=== PATIENT | male | born 2000 | race Caucasian/White ===

== ENCOUNTER 2023-07-30 08:20 | Emergency (ER) | payer MEDICAID, SELFPAY ==
[2023-07-30 08:21] VITALS: BP 116/79; PULSE 84; RESP 16; TEMP 36.1; O2SAT 97; BMI 21.1
--- NOTE | 2023-07-30 08:44 | EDS_ITS ---
HPI HPI - GI History of Present Illness Chief Complaint: Abd Pain Narrative Narrative: 23-year-old male who denies significant past medical history presents with epigastric to upper abdominal pain that began around 530 this morning, approximately 3 hours ago. He denies any fevers or chills, no nausea or vomiting, no dysuria or hematuria, no problems with bowel movements. More of a pain whenever he sits up or stands and walks. He denies other symptoms. He does vape, but denies any alcohol or drug use. He states yesterday everything was fine, denies any trauma. [facility] Medical History Anxiety and depression Allergy/AdvReac Type Severity Reaction Status Date / Time No Known Allergies Allergy Verified 07/30/23 08:21 Social History Smoking Status: Current every day smoker tobacco type: e-cigarettes ROS ROS ED ROS Narrative Constitutional: No fever, no chills. HEENT: No sore throat. No neck pain. No loss of vision. No rhinorrhea. Cardiovascular: No chest pain. No palpitations. No pedal edema. Respiratory: No cough, no shortness of breath. Abdominal: Epigastric/upper abdominal pain no nausea. No vomiting. Genitourinary: No dysuria. No hematuria. Musculoskeletal: No myalgias. No arthralgias. Neurologic: No headaches. No dizziness. No lightheadedness. Skin: No rash. No change in color. Psychiatric: No depression. No anxiety. EXAM Physical Exam Narrative Exam Narrative: Afebrile. Vital signs noted. HEENT: Normocephalic. Atraumatic. PERRL, EOMI. Neck soft and supple. No point tenderness or step off. Cardiovascular: Regular rate and rhythm. No murmurs, rubs, or gallops appreciated. Respiratory: No tachypnea. Lungs clear to auscultation bilaterally. Gastrointestinal: Abdomen soft, nontender, positive pain with half sit up in epigastrium/upper abdominal area, with normoactive bowel sounds. No rebound or guarding. Neurological: Awake. Alert. Nonfocal, nonlateralizing. Skin: No rash. Normal color. No pallor. Musculoskeletal: No pedal edema. Full range of motion extremities. Const Vital Signs: 07/30/23 08:21 07/30/23 08:55 Temperature 96.9 F L Temperature Source Temporal Pulse Rate 84 80 Respiratory Rate 16 Blood Pressure 116/79 Blood Pressure Mean 91 Pulse Ox 97 Oxygen Delivery Method Room Air MDM MDM MDM Narrative Medical decision making narrative: In the differential diagnosis would be pancreatitis versus abdominal wall strain versus nonspecific abdominal pain. He is not really exhibiting other signs of internal abdominal problems such as nausea or vomiting, no diarrhea. But I do think he has more of an abdominal wall strain, I do feel that screening laboratory should be obtained. I do not feel he requires emergent CT imaging currently. He was bolused normal saline and administered Toradol 15 mg intravenously. Upon repeat examination at approximately 940 he is resting comfortably on the cot with his shirt over his head. I reviewed his laboratory work from today and he has normal white count of 4.5, hemoglobin normal at 15.6, normal platelet count of 334. CMP shows AST low at 12 with normal ALT of 16 and alk phos sl ightly elevated at 44 which I think is nonspecific. He has a normal lipase. At this point in time, I do feel that he has probably more of an abdominal wall strain. I do not feel he requires observation. He will take [id number] analgesics, and rest today. He requested a note to be off work today. Return instructions to the emergency department were reviewed. Disposition is discharged home in stable condition. History & Record Review Discussion w/independent historian: Patient Additional record(s) reviewed:: No prior records Lab Data Attestation: I reviewed the patient's lab results. Labs: Laboratory Results - last 24 hr 07/30/23 08:55 WBC 4.5 RBC 5.35 Hgb 15.6 Hct 46.5 MCV 86.9 MCH 29.2 MCHC 33.5 RDW Std Deviation 43.3 RDW Coeff of Nicholas 13.6 Plt Count 334 MPV 9.2 Immature Gran % (Auto) 0.000 Neut % (Auto) 60.3 Lymph % (Auto) 31.2 [place] % (Auto) 7.4 Eos % (Auto) 0.7 Baso % (Auto) 0.4 Absolute Neuts (auto) 2.7 Absolute Lymphs (auto) 1.39 Nucleated RBC % 0 Sodium 139 Potassium 3.7 Chloride 106 Carbon Dioxide 30.0 Anion Gap 3 L BUN 11 Creatinine 0.91 Estim Creat Clear Calc 111.22 Est GFR (MDRD) Af Amer 135 Est GFR (MDRD) Non-Af 111 BUN/Creatinine Ratio 12.0 Glucose 97 Calcium 8.9 Total Bilirubin 0.50 AST 12 L ALT 16 Alkaline Phosphatase 44 L Total Protein 6.1 L Albumin 3.9 Globulin 2.2 Albumin/Globulin Ratio 1.8 Lipase 18 Discharge Plan Triage Chief Complaint: Abd Pain ED Provider: Ahsan Lowery Dx/Rx/DC Orders Clinical Impression: Epigastric pain, Abdominal wall pain Instructions: ED Epigastric Pain Uncertain Cause, ED Abdominal Pain Unkn Cause Male... Stand Alone Forms: ED Work / School Excuse Primary Care Provider: Care Physician,No Primary Referrals: Rickie Kingsley MD [Med Staff - Active Staff] - 3-5 Days if not improving Care Physician,No Primary [Primary Care Provider] - Disposition Disposition: Home, Self Care
[2023-07-30] MEDS: 0.9% Normal Saline 1,000 ML 1000 ML IV (08:54)
[2023-07-30] MEDS: Ketorolac 15 MG/ML Vial IV (08:54)
[2023-07-30 08:55] VITALS: PULSE 80
[2023-07-30 09:18] LABS: ALB/GLOB Ratio 1.8 RATIO (0.9-2.4); AST(SGOT) 12 U/L (15-37); Absolute Lymphocyte Count 1.39 X10^3/uL (0.83-4.51); Absolute Neutrophil Count 2.7 X10^3/uL (2.0-7.7); Alanine Aminotransfer ALT/SGPT 16 U/L (16-61); Albumin, Serum 3.9 g/dL (3.2-5.0); Alkaline Phosphatase 44 U/L (45-117); Anion Gap 3 (5-15); BUN 11 mg/dL (7-18); Basophil# 0.02 X10^3/uL; Basophil% 0.4 % (0-1); Calcium,Total 8.9 mg/dL (8.5-10.1); Chloride 106 mmol/L (98-107); Creatinine, Serum 0.91 mg/dL (0.70-1.30); EST Glomerular Filtration Rate 111 mL/min (>60); Eosinophil# 0.03 X10^3/uL; Eosinophils% 0.7 % (0-5); Est Glom Filt Rate - Afr Amer 135 mL/min (>60); Estimated Creatinine Clearance 111.22 ml/min; Globulin 2.2 g/dL (2.2-4.2); Glucose 97 mg/dL (74-106); Hematocrit 46.5 % (40-54); Hemoglobin 15.6 g/dL (13.0-16.5); Lipase 18 U/L (13-75); Lymphocyte # 1.39 X10^3/ul (0.83-4.51); Lymphocyte % 31.2 % (19-41); Mean Corp Hgb Conc 33.5 g/dL (32-36); Mean Corpuscular Hgb 29.2 pg (27.0-32.0); Mean Corpuscular Volume 86.9 fL (80-94); Mean Platelet Vol. 9.2 fl (6.2-12.0); Monocyte# 0.33 X10^3/uL; Monocyte% 7.4 % (0-10); NRBC Flagged by Analyzer 0 % (0-5); Neutrophil # 2.68 X10^3/uL (2.7-7.7); Neutrophil % 60.3 % (47-70); Platelet Count 334 K/mm3 (150-450); Potassium 3.7 mmol/L (3.5-5.1); Protein, Total 6.1 g/dL (6.4-8.2); RBC Distribution Width CV 13.6 % (11.6-14.6); RBC Distribution Width SD 43.3 fl (35.1-43.9); Red Blood Count 5.35 M/mm3 (4.6-6.2); Sodium Level 139 mmol/L (136-145); White Blood Count 4.5 K/mm3 (4.4-11.0)
== END 2023-07-30 09:52 | disposition home or self-care (01) ==
PROVIDERS: Emergency Provider Emergency Medicine; Visit Provider Emergency Medicine
DX: R10.13 Epigastric pain (principal); F17.290 Nicotine dependence, other tobacco product, uncomplicated; R10.9 Unspecified abdominal pain
CPT/HCPCS: 80053; 83690; 85025; 96361; 96374; 99282; J7030; A4216

== ENCOUNTER 2023-09-30 15:41 | Emergency (ER) | payer MEDICAID, SELFPAY ==
[2023-09-30] VITALS (8 sets, daily range): BP systolic 99–115; BP diastolic 50–73; PULSE 56–95; RESP 13–21; TEMP 36.4; O2SAT 97–100; BMI 19.6
--- NOTE | 2023-09-30 16:17 | EKG12_ITS ---
Test Reason : Blood Pressure : / mmHG Vent. Rate : 085 BPM Atrial Rate : 085 BPM P-R Int : 162 ms QRS Dur : 088 ms QT Int : 350 ms P-R-T Axes : 095 085 078 degrees QTc Int : 416 ms Normal sinus rhythm Normal ECG Confirmed by ABHISHEK DIXON, VALDEZ ([id number]), food expeditor GRAYSON MENEZES ([id number]) on 10/10/2023 7:49:10 AM Referred By: Confirmed By:SERA WEISS MD
--- NOTE | 2023-09-30 16:18 | EDS_ITS ---
HPI History of Present Illness Chief Complaint: Alt LOC Informant: EMS Narrative Narrative: 23-year-old male presenting to the emergency department via EMS with a chief complaint of altered mental status. Reportedly the patient was at work at [employer] and was found stumbling around the parking lot confused/altered. Patient is not speaking and cannot provide any history. EMS notes no outward signs of trauma. [facility] Medical History Anxiety and depression Allergy/AdvReac Type Severity Reaction Status Date / Time No Known Allergies Allergy Verified 07/30/23 08:21 Social History Smoking Status: Current every day smoker tobacco type: e-cigarettes ROS ROS ED Review of Systems ROS Unobtainable: due to mental status EXAM Physical Exam Const Vital Signs: 09/30/23 15:42 09/30/23 15:46 09/30/23 17:27 Temperature 97.5 F L Temperature Source Temporal Pulse Rate 95 93 84 Respiratory Rate 20 H 21 H 16 Blood Pressure 115/73 115/73 99/50 L Blood Pressure Mean 87 87 66 Pulse Ox 98 100 99 Oxygen Delivery Method Room Air Room Air Room Air 09/30/23 18:25 09/30/23 20:05 Temperature Temperature Source Pulse Rate 68 75 Respiratory Rate 16 18 Blood Pressure 111/68 111/64 Blood Pressure Mean 82 79 Pulse Ox 99 Oxygen Delivery Method Room Air Positive well nourished and well developed General Appearance ED: well developed HEENT Reports normocephalic, head/scalp atraumatic and moist mucous membranes Eyes EOMs intact bilaterally Eyes Narrative: Pupils are 4 mm and minimally reactive Neck no lymphadenopathy, supple and no JVD Resp normal respiratory effort and clear to auscultation bilaterally Cardio regular rate, regular rhythm and no murmurs GI normal to inspection, nondistended, normoactive bowel sounds and non-tender Palpation: soft Back/Spine no CVA tenderness and normal ROM Extremity normal to inspection General Extremety ED: Negative for edema General Extremity: Negative for edema Neuro Neuro Narrative: Nonverbal at this time. He is moving all extremities. He attempts to grab me multiple times during examination. Patient attempted to punch me during the exam. Sensorium / Orientation: lethargic Skin no rashes or lesions noted and no wounds MDM MDM MDM Narrative Medical decision making narrative: Patient attempted to punch me during the examination. I was able to restrain the arm and call for help. Once additional staff including security arrived patient calm down and was allowed to close his eyes rest. Unfortunately this was short-lived and the patient again became aggressive with staff starting to fight nursing. He was placed in soft restraints. He was allowed to come out of restraints but once again became agitated and combative and was placed in restraints again. Patient was reassessed by this physician every hour that he was here. He has been hemodynamically stable. He is not in any distress. Basic blood work essentially unremarkable. Toxicology is positive for noise patient was in the to sleep and is calm down and is out of restraints. Called somebody to give him a ride home. Would recommend drug treatment if he wishes History & Record Review Discussion w/independent historian: EMS personnel and Patient Lab Data Attestation: I reviewed the patient's lab results. Labs: Laboratory Results - last 24 hr 09/30/23 09/30/23 16:20 18:20 WBC 6.6 RBC 4.99 Hgb 14.2 Hct 43.7 MCV 87.6 MCH 28.5 MCHC 32.5 RDW Std Deviation 43.0 RDW Coeff of Nicholas 13.3 Plt Count 341 MPV 9.5 Immature Gran % (Auto) 0.300 Neut % (Auto) 59.5 Lymph % (Auto) 33.1 [place] % (Auto) 6.2 Eos % (Auto) 0.6 Baso % (Auto) 0.3 Absolute Neuts (auto) 3.9 Absolute Lymphs (auto) 2.19 Nucleated RBC % 0 Sodium 140 Potassium 3.5 Chloride 105 Carbon Dioxide 27.0 Anion Gap 8 BUN 10 Creatinine 1.25 Estim Creat Clear Calc 86.87 Est GFR (MDRD) Af Amer 94 Est GFR (MDRD) Non-Af 77 BUN/Creatinine Ratio 8.0 L Glucose 93 Calcium 9.0 Total Bilirubin 0.40 AST 17 ALT 18 Alkaline Phosphatase 49 Total Protein 6.6 Albumin 3.9 Globulin 2.7 Albumin/Globulin Ratio 1.4 Urine Color Yellow Urine Clarity Clear Urine pH 6.0 Ur Specific [place] 1.010 Urine Protein Negative Urine Glucose (UA) Normal Urine Ketones Negative Urine Occult Blood Negative Urine Nitrite Negative Urine Bilirubin Negative Urine Urobilinogen Normal Ur Leukocyte Esterase Negative Urine RBC 0 SEEN Urine WBC 0 SEEN Ur Squamous Epith Cells 0 SEEN Urine Bacteria 0 SEEN Urine Mucus 0 SEEN Urine Opiates Screen NEGATIVE Urine Methadone Screen NEGATIVE Ur Barbiturates Screen NEGATIVE Ur Phencyclidine Scrn NEGATIVE Ur Amphetamines Screen NEGATIVE MDMA (Ecstasy) Screen NEGATIVE U Benzodiazepines Scrn NEGATIVE Urine Cocaine Screen NEGATIVE U Cannabinoids Screen POSITIVE H Ur Drug Screen Comment Ethyl Alcohol < 3.0 EKG Initial EKG: Attestation: I personally reviewed and interpreted this EKG as follows: Comments: Normal sinus rhythm ventricular rate of 85 bpm. J-point elevation noted. No definitive features of ACS. Normal QT interval. Normal QRS duration Discharge Plan Triage Chief Complaint: Alt LOC ED Provider: Cory Peterson Dx/Rx/DC Orders Clinical Impression: Acute drug intoxication, Altered mental status Instructions: ED Drug Abuse Primary Care Provider: Care Physician,No Primary Referrals: Care Physician,No Primary [Primary Care Provider] - [facility] [Non-Staff] - As soon as possible Disposition Disposition: Home, Self Care
[2023-09-30 16:36] LABS: Absolute Lymphocyte Count 2.19 X10^3/uL (0.83-4.51); Absolute Neutrophil Count 3.9 X10^3/uL (2.0-7.7); Basophil# 0.02 X10^3/uL; Basophil% 0.3 % (0-1); Eosinophil# 0.04 X10^3/uL; Eosinophils% 0.6 % (0-5); Hematocrit 43.7 % (40-54); Hemoglobin 14.2 g/dL (13.0-16.5); Lymphocyte # 2.19 X10^3/ul (0.83-4.51); Lymphocyte % 33.1 % (19-41); Mean Corp Hgb Conc 32.5 g/dL (32-36); Mean Corpuscular Hgb 28.5 pg (27.0-32.0); Mean Corpuscular Volume 87.6 fL (80-94); Mean Platelet Vol. 9.5 fl (6.2-12.0); Monocyte# 0.41 X10^3/uL; Monocyte% 6.2 % (0-10); NRBC Flagged by Analyzer 0 % (0-5); Neutrophil # 3.94 X10^3/uL (2.7-7.7); Neutrophil % 59.5 % (47-70); Platelet Count 341 K/mm3 (150-450); RBC Distribution Width CV 13.3 % (11.6-14.6); Red Blood Count 4.99 M/mm3 (4.6-6.2); White Blood Count 6.6 K/mm3 (4.4-11.0)
--- NOTE | 2023-09-30 16:38 | ED.RN ---
Patient refusing to cooperate with staff. Attempting to strike staff by swinging fist. Given choice to cooperate or be placed in restraints. Patient attempting to grab at staff, EMD in room. Patient placed in restraints per order.
[2023-09-30 17:38] LABS: Alcohol, Blood (Medical)-Serum < 3.0 mg/dL
[2023-09-30 17:42] LABS: ALB/GLOB Ratio 1.4 RATIO (0.9-2.4); AST(SGOT) 17 U/L (15-37); Alanine Aminotransfer ALT/SGPT 18 U/L (16-61); Albumin, Serum 3.9 g/dL (3.2-5.0); Alkaline Phosphatase 49 U/L (45-117); Anion Gap 8 (5-15); BUN 10 mg/dL (7-18); Chloride 105 mmol/L (98-107); Creatinine, Serum 1.25 mg/dL (0.70-1.30); EST Glomerular Filtration Rate 77 mL/min (>60); Est Glom Filt Rate - Afr Amer 94 mL/min (>60); Estimated Creatinine Clearance 86.87 ml/min; Globulin 2.7 g/dL (2.2-4.2); Glucose 93 mg/dL (74-106); Potassium 3.5 mmol/L (3.5-5.1); Protein, Total 6.6 g/dL (6.4-8.2); Sodium Level 140 mmol/L (136-145)
--- NOTE | 2023-09-30 18:15 | ED.RN ---
Patient released from 2 restraints following conversation about releasing from restraints if willing to cooperate. Patient verbalized understanding. Released from left wrist and right ankle.
--- NOTE | 2023-09-30 18:20 | ED.RN ---
Patient removed other restraints. Patient instructed that he would be returned to restraints due to not following previous instructions. Patient refusing to cooperate. Stated he need to urinate and this nurse assisted him with urinal. Voided 800ml clear yellow urine.
[2023-09-30 18:27] LABS: Bacteria 0 SEEN /hpf (None Seen); Mucous, Urine 0 SEEN /hpf (<or=2+); Red Blood Cells-Urine 0 SEEN /hpf (0-5); Squamous Epithelial Cells - UA 0 SEEN /hpf (0-5); White Blood Cells 0 SEEN /hpf (0-5)
[2023-09-30 18:37] LABS: Color, Urine Yellow (Yellow); Glucose, Dipstick Normal (Normal); Ketone-Dipstick Negative (Negative); Leukocyte Esterase-Dipstick Negative /ul (Negative); Nitrite-Dipstick Negative (Negative); Occult Blood-Urine Negative /ul (Negative); Protein-Dipstick Negative (Negative); Urine Bilirubin Dipstick Negative (Negative); Urine Clarity Clear (Clear); Urine Urobilinogen Normal (Normal)
--- NOTE | 2023-09-30 18:38 | ED.RN ---
Patient found out of restraints and attempting to remove IV. Leather restraints applied and soft restraints removed. Dr. Peterson aware.
[2023-09-30 18:46] LABS: Amphetamine Urine VISTA NEGATIVE (<1000 ng/mL); Barbiturate Urine VISTA NEGATIVE (< 200 ng/mL); Benzodiazepine Urine VISTA NEGATIVE (< 200 ng/mL); Cocaine Urine VISTA NEGATIVE (< 300 ng/mL); Ecstacy Urine VISTA NEGATIVE (< 500 ng/mL); Methadone Urine VISTA NEGATIVE (< 300 ng/mL); PCP Urine VISTA NEGATIVE (< 25 ng/mL); THC Urine VISTA POSITIVE (< 50 ng/mL); Vista UDS pH Range 5
--- NOTE | 2023-10-01 00:29 | ED.RN ---
Addendum entered by Sophia Gudino 10/01/23 02:53: Change happened around 1930 on 09/30/2023 per report. Original Note: Changed from soft restraints to locked restraints.
== END 2023-09-30 23:31 | disposition home or self-care (01) ==
PROVIDERS: Emergency Provider Emergency Medicine; Visit Provider Emergency Medicine
DX: R41.82 Altered mental status, unspecified (principal); F19.129 Other psychoactive substance abuse with intoxication, unspecified; F17.290 Nicotine dependence, other tobacco product, uncomplicated
CPT/HCPCS: 80053; 80307; 81001; 82077; 85025; 93005; 99285; A4216